=== PATIENT | male | born 1950 | race Caucasian/White ===

== ENCOUNTER 2019-02-01 11:40 | Inpatient (IN) | payer MEDICARE ==
--- NOTE | 2019-02-01 12:03 | ED ---
General Adult HPI - General Chief complaint: Shortness of Breath Stated complaint: SOB Time Seen by Provider: 02/01/19 11:40 Source: patient, RN notes reviewed Mode of arrival: ambulatory Limitations: no limitations - History of Present Illness Initial comments: This is a 68-year-old male who presents emergency Department being short of breath for the last few weeks. Patient states he thinks this began probably 6 months ago. Patient states lately though it is getting much worse. Patient states he short of breath sometimes just going to take a shower. Patient states tonight he woke up in the middle night in a panic because he was so short of br eath. Patient denies any chest pain patient denies any arm pain patient denies any neck pain. Patient states that he has had a bypass and has had stent placement in his heart. Patient states he has never had chest pain when he's had his issues with his heart in the past has always been arm pain. Patient denies any chest or arm pain today. Patient denies any recent fever chills or cough. Patient denies any leg swelling or calf tenderness. Patient states he notices himself sitting and doing things he normally would stand walk around and do. Patient's monitored home to set his heart rate was in the low 30s. - Related Data Home Medications Medication Instructions Recorded Confirmed Ammonium Lactate Cream [Lac-Hydrin 1 applic TOPICAL HS PRN 02/01/19 02/01/19 12% Cream] Aspirin [Emmet Aspirin EC] 81 mg PO DAILY 02/01/19 02/01/19 Beclomethasone Dipropionate [Qvar 2 puff INHALATION RT-DAILY 02/01/19 02/01/19 80 mcg] Carvedilol [Coreg] 25 mg PO BID 02/01/19 02/01/19 Famotidine [Pepcid] 20 mg PO DAILY PRN 02/01/19 02/01/19 Latanoprost/Pf [Latanoprost 0.005% 1 drop BOTH EYES HS 02/01/19 02/01/19 Eye Drop] Losartan [Cozaar] 50 mg PO DAILY 02/01/19 02/01/19 Naproxen Sodium [Aleve] 220 mg PO DAILY 02/01/19 02/01/19 Repaglinide [Prandin] 0.5 mg PO AC-SUPPER 02/01/19 02/01/19 Rosuvastatin [Crestor] 10 mg PO DAILY 02/01/19 02/01/19 metFORMIN HCL 1,000 mg PO BID 02/01/19 02/01/19 Allergies Allergy/AdvReac Type Severity Reaction Status Date / Time No Known Allergies Allergy Verified 02/01/19 12:23 Review of Systems ROS Statement: Those systems with pertinent positive or pertinent negative responses have been documented in the HPI. ROS Other: All systems not noted in ROS Statement are negative. Past Medical History Past Medical History: Coronary Artery Disease (CAD), Diabetes Mellitus, Hyperlipidemia, Hypertension History of Any Multi-Drug Resistant Organisms: None Reported Past Surgical History: Coronary Bypass/CABG, Heart Catheterization With Stent Past Psychological History: No Psychological Hx Reported Smoking Status: Former smoker Past Alcohol Use History: None Reported Past Drug Use History: None Reported General Exam - General Exam Comments Initial Comments: GENERAL: Patient is well-developed and well-nourished. Patient is nontoxic and well- hydrated and is in mild distress. ENT: Neck is soft and supple. No significant lymphadenopathy is noted. Oropharynx is clear. Moist mucous membranes. Neck has full range of motion without eliciting any pain. EYES: The sclera were anicteric and conjunctiva were pink and moist. Extraocular movements were intact and pupils were equal round and reactive to light. Eyelids were unremarkable. PULMONARY: Unlabored respirations. Good breath sounds bilaterally. No audible rales r honchi or wheezing was noted. CARDIOVASCULAR: There is a regular rate and rhythm without any murmurs gallops or rubs. ABDOMEN: Soft and nontender with normal bowel sounds. No palpable organomegaly was noted. There is no palpable pulsatile mass. SKIN: Skin is clear with no lesions or rashes and otherwise unremarkable. NEUROLOGIC: Patient is alert and oriented x3. Cranial nerves II through XII are grossly intact. Motor and sensory are also intact. Normal speech, volume and content. Symmetrical smile. MUSCULOSKELETAL: Normal extremities with adequate strength and full range of motion. No edema in the legs bilaterally. LYMPHATICS: No significant lymphadenopathy is noted PSYCHIATRIC: Normal psychiatric evaluation. Limitations: no limitations Course Vital Signs 02/01/19 02/01/19 11:41 12:47 Temperature 97.7 F Pulse Rate 32 L 94 Respiratory 18 14 Rate Blood Pressure 152/51 139/82 O2 Sat by Pulse 99 97 Oximetry Medical Decision Making - Medical Decision Making EKG shows a sinus rhythm with multiple PVCs and bigeminy pattern often. Patient's rate was 94 bpm AR interval is 158 QRSs 102 QT interval 350 QTC is 437. We have no old EKG to compare to. There is no obvious ST segment elevation or depression. CT of the chest showed no acute PE. - Lab Data Result diagrams: 02/01/19 12:05 02/01/19 12:05 Lab Results 02/01/19 02/01/19 02/01/19 Range/Units 12:05 12:05 12:05 WBC 5.5 (3.8-10.6) k/uL RBC 4.48 (4.30-5.90) m/uL Hgb 13.1 (13.0-17.5) gm/dL Hct 39.5 (39.0-53.0) % MCV 88.0 (80.0-100.0) fL MCH 29.2 (25.0-35.0) pg MCHC 33.2 (31.0-37.0) g/dL RDW 14.3 (11.5-15.5) % Plt Count 200 (150-450) k/uL Neutrophils % 55 % Lymphocytes % 28 % Monocytes % 9 % Eosinophils % 5 % Basophils % 0 % Neutrophils # 3.0 (1.3-7.7) k/uL Lymphocytes # 1.5 (1.0-4.8) k/uL Monocytes # 0.5 (0-1.0) k/uL Eosinophils # 0.3 (0-0.7) k/uL Basophils # 0.0 (0-0.2) k/uL PT (9.0-12.0) sec INR (<1.2) APTT (22.0-30.0) sec D-Dimer (<0.60) mg/L FEU Sodium 142 (137-145) mmol/L Potassium 5.4 H (3.5-5.1) mmol/L Chloride 111 H (98-107) mmol/L Carbon Dioxide 21 L (22-30) mmol/L Anion Gap 10 mmol/L BUN 28 H (9-20) mg/dL Creatinine 1.20 (0.66-1.25) mg/dL Est GFR (CKD-EPI)AfAm 72 (>60 ml/min/1.73 sqM) Est GFR (CKD-EPI)NonAf 62 (>60 ml/min/1.73 sqM) Glucose 117 H (74-99) mg/dL Calcium 9.5 (8.4-10.2) mg/dL Magnesium 1.4 L (1.6-2.3) mg/dL Total Bilirubin 0.6 (0.2-1.3) mg/dL AST 19 (17-59) U/L ALT 35 (21-72) U/L Alkaline Phosphatase 54 (38-126) U/L Troponin I (0.000-0.034) ng/mL NT-Pro-B Natriuret Pep 405 pg/mL Total Protein 6.8 (6.3-8.2) g/dL Albumin 4.5 (3.5-5.0) g/dL 02/01/19 02/01/19 02/01/19 Range/Units 12:05 12:05 12:05 WBC (3.8-10.6) k/uL RBC (4.30-5.90) m/uL Hgb (13.0-17.5) gm/dL Hct (39.0-53.0) % MCV (80.0-100.0) fL MCH (25.0-35.0) pg MCHC (31.0-37.0) g/dL RDW (11.5-15.5) % Plt Count (150-450) k/uL Neutrophils % % Lymphocytes % % Monocytes % % Eosinophils % % Basophils % % Neutrophils # (1.3-7.7) k/uL Lymphocytes # (1.0-4.8) k/uL Monocytes # (0-1.0) k/uL Eosinophils # (0-0.7) k/uL Basophils # (0-0.2) k/uL PT 10.6 (9.0-12.0) sec INR 1.0 (<1.2) APTT 24.5 (22.0-30.0) sec D-Dimer 0.77 H (<0.60) mg/L FEU Sodium (137-145) mmol/L Potassium (3.5-5.1) mmol/L Chloride (98-107) mmol/L Carbon Dioxide (22-30) mmol/L Anion Gap mmol/L BUN (9-20) mg/dL Creatinine (0.66-1.25) mg/dL Est GFR (CKD-EPI)AfAm (>60 ml/min/1.73 sqM) Est GFR (CKD-EPI)NonAf (>60 ml/min/1.73 sqM) Glucose (74-99) mg/dL Calcium (8.4-10.2) mg/dL Magnesium (1.6-2.3) mg/dL Total Bilirubin (0.2-1.3) mg/dL AST (17-59) U/L ALT (21-72) U/L Alkaline Phosphatase (38-126) U/L Troponin I <0.012 (0.000-0.034) ng/mL NT-Pro-B Natriuret Pep pg/mL Total Protein (6.3-8.2) g/dL Albumin (3.5-5.0) g/dL Disposition Clinical Impression: Dyspnea, Bigeminy, Hypomagnesemia Disposition: ADMITTED IP TO THIS HOSP Referrals: Obi Carrera MD [Primary Care Provider] - 1-2 days Time of Disposition: 15:02
[2019-02-01 12:20] LABS: Basophils % (A) 0 %; Eosinophils # (A) 0.3 k/uL (0-0.7); Eosinophils % (A) 5 %; HCT 39.5 % (39.0-53.0); HGB 13.1 gm/dL (13.0-17.5); Lymphocytes # (A) 1.5 k/uL (1.0-4.8); Lymphocytes % (A) 28 %; MCH 29.2 pg (25.0-35.0); MCHC 33.2 g/dL (31.0-37.0); Mean Platelet Volume 6.9; Monocytes # (A) 0.5 k/uL (0-1.0); Monocytes % (A) 9 %; Neutrophils % (A) 55 %; Platelet Count 200 k/uL (150-450); RBC 4.48 m/uL (4.30-5.90); RDW 14.3 % (11.5-15.5); WBC 5.5 k/uL (3.8-10.6)
[2019-02-01 12:27] LABS: Partial Thromboplastin Time 24.5 sec (22.0-30.0); Prothrombin Time 10.6 sec (9.0-12.0)
[2019-02-01 12:31] LABS: Albumin 4.5 g/dL (3.5-5.0); Calcium 9.5 mg/dL (8.4-10.2); Magnesium 1.4 mg/dL (1.6-2.3); Potassium 5.4 mmol/L (3.5-5.1); Total Bilirubin 0.6 mg/dL (0.2-1.3); Total Protein 6.8 g/dL (6.3-8.2)
--- NOTE | 2019-02-01 12:37 | XR ---
EXAMINATION TYPE: XR chest 2V DATE OF EXAM: 02/01/2019 COMPARISON: NONE TECHNIQUE: PA and lateral views submitted. HISTORY: Irregular heart rate FINDINGS: The lungs are clear and there is no pneumothorax, pleural effusion, or focal pneumonia. Disrupted s ternotomy wires seen. Additional sternotomy wires are identified. No overt failure. The heart is mild ly enlarged. Arthropathy of the shoulders. Hypertrophic degenerative change of the spine. IMPRESSION: 1. No acute process.
--- NOTE | 2019-02-01 14:40 | CT ---
EXAMINATION TYPE: CT chest angio for PE DATE OF EXAM: 02/01/2019 COMPARISON: NONE HISTORY: Chest pain CT DLP: 519.1 mGycm. Automated Exposure Control for Dose Reduction was Utilized. CONTRAST: CTA scan of the thorax is performed with IV Contrast, patient injected with 100 mL of Isovue 370, pul monary embolism protocol. MIP Images are created on CT scanner and reviewed. FINDINGS: LUNGS: Patchy geographic areas of groundglass opacity typically related to mild fluid overload and ov erall congestive heart failure is favored given the enlarged heart. The lungs are grossly clear, ther e is no concerning parenchymal mass or nodule identified. There is no pleural effusion or pneumotho rax seen. The tracheobronchial tree is patent. MEDIASTINUM: There is satisfactory enhancement of the pulmonary artery and its branches, there is no CT evidence for pulmonary embolism. There are no greater than 1 cm hilar or mediastinal lymph nodes. Heart is mildly enlarged. No pericardial effusion. Post CABG changes the chest are noted. OTHER: Minimal retroareolar bilateral symmetric gynecomastia is present. Cholelithiasis is noted with calculi near the gallbladder neck. Too small to accurately characterize left renal exophytic lesion is present. There are median sternotomy wires. Subacute appearing fracture of the posterior lateral m argin of ribs 6 through 8 are seen. Bridging anterior osteophytes suggest diffuse idiopathic skeletal hyperostosis. IMPRESSION: 1. No evidence of pulmonary embolus. 2. Scattered geographic ground glass opacities have a broad differential however primary differential consideration is for cardiogenic fluid overload. Atypical pneumonia, hypersensitivity pneumonitis, o r inflammatory etiology would be considered less likely. 3. Cholelithiasis with calculi near the gallbladder neck.
[2019-02-01] MEDS ORDERED: SODIUM CHLORIDE 0.9% 1,000 ML IV ONE (15:17)
[2019-02-01] MEDS ORDERED: MAGNESIUM SULFATE-D5W PMX 1 GM in DEXTROSE/WATER 1 100ML.BAG IVPB ONE (15:26)
[2019-02-01 16:52] LABS: Glucose,Whole Blood 100 mg/dL (75-99)
[2019-02-01] MEDS ORDERED: AMMONIUM LACTATE 12% CREAM 140 GM TUBE TOPICAL PRN (18:55)
[2019-02-01] MEDS ORDERED: FAMOTIDINE 20 MG TAB PO PRN (18:55)
[2019-02-01] MEDS ORDERED: REPAGLINIDE 1 MG TAB PO SCH (19:00)
[2019-02-01] MEDS: CARVEDILOL 12.5 MG TAB PO SCH (20:21)
[2019-02-01] MEDS: MAGNESIUM OXIDE 400 MG TAB PO SCH ×2 (20:22→20:30)
[2019-02-01] MEDS: metFORMIN 500 MG TAB PO SCH (20:22)
[2019-02-01 20:55] LABS: Glucose,Whole Blood 112 mg/dL (75-99)
[2019-02-01] MEDS ORDERED: LATANOPROST 0.005% OPHTH DROPS 2.5 ML BTL BOTH EYES SCH (21:00)
[2019-02-01] MEDS: INSULIN ASPART (NovoLOG) 100 UNIT/ML VIAL SQ SCH (21:28)
--- NOTE | 2019-02-01 23:35 | HP ---
HISTORY AND PHYSICAL DATE OF ADMISSION: 02/01/2019 DATE OF SERVICE: 02/01/2019 PRESENTING COMPLAINT: Short of breath. HISTORY OF PRESENTING COMPLAINT: This is a 68-year-old patient of Dr. Obi Carrera. Chronic stable medical conditions include coronary artery disease, diabetes, hypertension, hyperlipidemia. The patient 8 days ago noticed that he was having trouble lying down sleeping. In fact had to lean forward and sleep. He has been noticing that he gets more easily short winded. Decreased energy. No edema. Occasional cough. No palpitations. No perspiration. 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 The patient was found to have frequent bigeminy and admitted for the same. Cardiology was consulted. REVIEW OF SYSTEMS: CONSTITUTIONAL: Tired. HEENT None. RESPIRATORY as above. CARDIOVASCULAR as above. GASTROINTESTINAL none. GENITOURINARY: None. MUSCULOSKELETAL: None. DERMATOLOGICAL, HEMATOLOGICAL: LYMPHATIC: none. PSYCHIATRY none., NEUROLOGICAL none. PAST MEDICAL HISTORY: Atrial fibrillation, coronary artery disease, diabetes mellitus type 2, hypertension, hyperlipidemia. PAST SURGICAL HISTORY: Back surgery, coronary bypass, cardiac cath with stent, eye surgery. SOCIAL HISTORY: Did smoke in the past. . The patient taught elementary. . FAMILY HISTORY: Coronary artery disease, stroke, diabetes. HOME MEDICATIONS: 1. Metformin 1000 mg p.o. b.i.d. 2. Crestor 10 mg p.o. daily. 3. Prandin 0.5 mg before supper. 4. Aleve 220 mg p.o. daily. 5. Cozaar 50 mg p.o. daily. 6. Latanoprost 0.005% 1 drop both eyes q.h.s. 7. Pepcid 20 mg p.o. daily p.r.n. 8. Coreg 25 mg p.o. b.i.d. 9. Qvar 80 mcg 2 puffs daily. 10.Aspirin 81 mg a day. 11.Lac-Hydrin 12% 1 application topical q.h.s. p.r.n. ALLERGIES: None. PHYSICAL EXAMINATION: VITAL SIGNS: Temperature 98.9, pulse 70, respiratory 18, blood pressure 162/65. Pulse ox 96% on room air. GENERAL APPEARANCE: Well built, BMI 31.2, sitting up awake. EYES: Pupils equal. Conjunctivae normal. HEENT: External appearance of nose and ears normal. Oral cavity normal. NECK: JVD unable to assess. Mass not palpable. RESPIRATORY: Effort increased. LUNGS: Diminished breath sounds cardiovascular. CARDIOVASCULAR: Heart sounds irregular. No edema. ABDOMEN: Soft, nontender. Liver and spleen not palpable. LYMPHATIC: No lymph nodes palpable in the neck or axilla. PSYCHIATRY: Alert and oriented x3. Mood and affect normal. NEUROLOGICAL: Pupils equal. Cranial nerves grossly intact. Power and sensation grossly intact. INVESTIGATIONS: White count 5.5, hemoglobin 13.1 potassium 5.4, BUN 20, creatinine 1.20, troponin times two negative. EKG frequent bigeminy. Chest CTA: No PE, gallstones. Chest x-ray film personally reviewed by me shows cardiomegaly. ASSESSMENT: 1. Frequent bigeminy, query symptomatic. 2. Symptoms of orthopnea, some cardiomegaly. The patient may be having high end- diastolic pressure. 3. Coronary artery disease with prior history of coronary artery bypass. 4. Diabetes mellitus type 2 on oral hypoglycemics. 5. Essential hypertension. 6. Hyperlipidemia. PLAN: Home medications are reviewed. We will DC the saline. Will give patient 1 dose of IV Lasix in the morning. Get a 2-D echocardiogram. Cardiology has been consulted. Care was discussed with the patient. The patient also on telemetry. MMODL / IJN: [id number] /
[2019-02-02 06:14] LABS: Glucose,Whole Blood 128 mg/dL (75-99)
[2019-02-02] MEDS: INSULIN ASPART (NovoLOG) 100 UNIT/ML VIAL SQ SCH ×2 (06:32→11:47)
[2019-02-02 07:15] LABS: Anion Gap 5 mmol/L; Blood Urea Nitrogen 22 mg/dL (9-20); Calcium 9.4 mg/dL (8.4-10.2); Carbon Dioxide 25 mmol/L (22-30); Chloride 110 mmol/L (98-107); Glucose 117 mg/dL (74-99); Magnesium 1.6 mg/dL (1.6-2.3); Potassium 5.3 mmol/L (3.5-5.1); Sodium 140 mmol/L (137-145)
[2019-02-02] MEDS: CARVEDILOL 12.5 MG TAB PO SCH (07:28)
[2019-02-02] MEDS ORDERED: FLUTICASONE 110 MCG INHALER INHALATION SCH (08:00)
[2019-02-02] MEDS ORDERED: LOSARTAN 50 MG TAB PO SCH (09:00)
[2019-02-02] MEDS ORDERED: FUROSEMIDE 10 MG/ML 4 ML VIAL IV SCH (09:00)
[2019-02-02] MEDS ORDERED: ASPIRIN 81 MG PO SCH (09:00)
[2019-02-02] MEDS ORDERED: ATORVASTATIN 20 MG TAB PO SCH (09:00)
--- NOTE | 2019-02-02 09:04 | P.CRDCN ---
History of Present Illness Consult date: 02/02/19 Requesting physician: Owen Burrell Consult reason: shortness of breath Chief complaint: Shortness of breath History of present illness: This is a pleasant 68-year-old gentleman who follows regularly with Dr. Aguillon in the office, he actually had an appointment in the office with him today. He has a known history of coronary artery disease with prior PTCA in 1998, subsequent to that he had bypass surgery in 2000, and most recently underwent a stent placement in 2013. He does have history of hypertension, diabetes, hyperlipidemia. He is a nonsmoker. He presents to the hospital on this occasion with symptoms of difficulty in catching his breath. He states that when he is in a reclined position sleeping, that he wakes up and is unable to breathe. He remains completely forward and shortly thereafter is able to breathe. He does state that when he is lying on the couch watching TV in the evening that he doesn't have these symptoms, it seems to be more so when he is lying in bed or in his recliner sleeping. 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 Blood pressure 140/60 with a heart rate in the 50s to 70s, he is afebrile, 97% on room air. White blood cell count 5.5, hemoglobin 13.1, platelet count 200. His d-dimer 0.77. Sodium 140, potassium 5.3, BUN 22 and creatinine 0.9. A mesial on admission 1.4, 1.6 this morning. Troponins negative 3. BNP level 405. Chest x-ray does not reveal any acute process. CTA of the chest did not reveal any evidence for pulmonary embolism, it did reveal scattered geographic ground glass obesity which have a broad differential however primary differential consideration is for cardiogenic fluid overload. Atypical pneumonia, pneumonitis, or inflammatory etiology. EKG shows a normal sinus rhythm with frequent bigeminal PVCs. Monitor tracing also shows bigeminal PVCs. At the time of my examination this morning patient is comfortable, he denies any palpitations, no difficulty in breathing, no dizziness or lightheadedness. Past Medical History Past Medical History: Atrial Fibrillation, Coronary Artery Disease (CAD), Diabetes Mellitus, Hyperlipidemia, Hypertension History of Any Multi-Drug Resistant Organisms: None Reported Past Surgical History: Back Surgery, Coronary Bypass/CABG, Heart Catheterization, Heart Catheterization With Stent, Orthopedic Surgery Additional Past Surgical History / Comment(s): EYE SX. Past Anesthesia/Blood Transfusion Reactions: No Reported Reaction Date of Last Stent Placement:: 2013 Past Psychological History: No Psychological Hx Reported Smoking Status: Former smoker Past Alcohol Use History: None Reported Past Drug Use History: None Reported - Past Family History Father Family Medical History: Coronary Artery Disease (CAD), CVA/TIA, Diabetes Mellitus Mother History Unknown: Yes Brother(s) Family Medical History: Coronary Artery Disease (CAD), Diabetes Mellitus Medications and Allergies Home Medications Medication Instructions Recorded Confirmed Type Ammonium Lactate Cream [Lac-Hydrin 1 applic TOPICAL HS PRN 02/01/19 02/01/19 History 12% Cream] Aspirin [Herkimer Aspirin EC] 81 mg PO DAILY 02/01/19 02/01/19 History Beclomethasone Dipropionate [Qvar 2 puff INHALATION RT-DAILY 02/01/19 02/01/19 History 80 mcg] Carvedilol [Coreg] 25 mg PO BID 02/01/19 02/01/19 History Famotidine [Pepcid] 20 mg PO DAILY PRN 02/01/19 02/01/19 History Latanoprost/Pf [Latanoprost 0.005% 1 drop BOTH EYES HS 02/01/19 02/01/19 History Eye Drop] Losartan [Cozaar] 50 mg PO DAILY 02/01/19 02/01/19 History Naproxen Sodium [Aleve] 220 mg PO DAILY 02/01/19 02/01/19 History Repaglinide [Prandin] 0.5 mg PO AC-SUPPER 02/01/19 02/01/19 History Rosuvastatin [Crestor] 10 mg PO DAILY 02/01/19 02/01/19 History metFORMIN HCL 1,000 mg PO BID 02/01/19 02/01/19 History Allergies Allergy/AdvReac Type Severity Reaction Status Date / Time No Known Allergies Allergy Verified 02/01/19 12:23 Physical Exam Vitals: Vital Signs Temp Pulse Pulse Resp BP BP Pulse Ox 02/02/19 04:00 97.6 F 57 L 15 141/63 97 04/30/19 00:00 77 16 112/59 95 02/01/19 20:00 98.0 F 56 L 17 123/70 98 02/01/19 16:50 98.9 F 78 18 163/65 96 02/01/19 16:20 92 12 142/80 99 02/01/19 12:47 94 14 139/82 97 02/01/19 11:41 97.7 F 32 L 18 152/51 99 Intake and Output 02/01/19 02/02/19 02/02/19 22:59 06:59 14:59 Intake Total 480 620 840 Balance 480 620 840 Intake: IV 20 Invasive Line 1 20 Intake, IV Titration 600 600 Amount Sodium Chloride 0.9% 1, 600 600 000 ml @ 75 mls/hr IV . [id number] ONE Rx#:[id number] Oral 480 240 Other: Voiding Method Toilet Toilet # Voids 2 Weight 103.8 kg PHYSICAL EXAMINATION: GENERAL: 68-year-old gentleman in no acute distress at the time of my examination HEENT: Head is atraumatic, normocephalic. Pupils equal, round. Sclera anicteric. Conjunctiva are clear. Mucous membranes of the mouth are moist. Neck is supple. There is no elevated jugular venous pressure. No carotid bruit is heard. HEART EXAMINATION: Heart S1, S2 normal. No murmur or gallop heard. CHEST EXAMINATION: Lungs are clear to auscultation and precussion. No chest wall tenderness is noted on palpation or with deep breathing. ABDOMEN: Soft, nontender. Bowel sounds are heard. No organomegaly noted. EXTREMITIES: 2+ peripheral pulses with no evidence of peripheral edema and no calf tenderness noted. NEUROLOGIC patient is awake, alert and oriented 3 . . Results 02/01/19 12:05 02/02/19 06:38 Cardiac Enzymes 02/01/19 02/01/19 02/01/19 Range/Units 12:05 12:05 21:00 AST 19 (17-59) U/L Troponin I <0.012 <0.012 (0.000-0.034) ng/mL 02/02/19 Range/Units 00:06 AST (17-59) U/L Troponin I <0.012 (0.000-0.034) ng/mL Coagulation 02/01/19 Range/Units 12:05 PT 10.6 (9.0-12.0) sec APTT 24.5 (22.0-30.0) sec CBC 02/01/19 Range/Units 12:05 WBC 5.5 (3.8-10.6) k/uL RBC 4.48 (4.30-5.90) m/uL Hgb 13.1 (13.0-17.5) gm/dL Hct 39.5 (39.0-53.0) % Plt Count 200 (150-450) k/uL Comprehensive Metabolic Panel 02/01/19 02/02/19 Range/Units 12:05 06:38 Sodium 142 140 (137-145) mmol/L Potassium 5.4 H 5.3 H (3.5-5.1) mmol/L Chloride 111 H 110 H (98-107) mmol/L Carbon Dioxide 21 L 25 (22-30) mmol/L BUN 28 H 22 H (9-20) mg/dL Creatinine 1.20 0.98 (0.66-1.25) mg/dL Glucose 117 H 117 H (74-99) mg/dL Calcium 9.5 9.4 (8.4-10.2) mg/dL AST 19 (17-59) U/L ALT 35 (21-72) U/L Alkaline Phosphatase 54 (38-126) U/L Total Protein 6.8 (6.3-8.2) g/dL Albumin 4.5 (3.5-5.0) g/dL Current Medications Generic Name Dose Route Start Last Admin Trade Name Freq PRN Reason Stop Dose Admin Aspirin 81 mg 02/02/19 09:00 Aspirin PO DAILY [facility] Atorvastatin Calcium 20 mg 02/02/19 09:00 Lipitor PO DAILY [facility] Carvedilol 25 mg 02/01/19 19:15 02/02/19 07:28 Coreg PO 25 mg BID-W/MEALS ZOË Administration Famotidine 20 mg 02/01/19 18:55 Pepcid PO DAILY PRN Heartburn Fluticasone Propionate 1 puff 02/02/19 08:00 02/02/19 07:33 Flovent 110 Mcg Inhaler INHALATION 1 puff RT-BID ZOË Administration Furosemide 40 mg 02/02/19 09:00 Lasix IV 02/02/19 09:01 DAILY [facility] Magnesium Sulfate/Dextrose 1 100 mls @ 100 mls/hr 02/02/19 09:00 gm/ IV Solution IVPB 02/02/19 10:59 Q1H [facility] Insulin Aspart 0 unit 02/01/19 21:00 02/02/19 06:32 Novolog SQ Not Given ACHS [facility] Protocol Lactic Acid 1 applic 02/01/19 18:55 Ammonium Lactate TOPICAL HS PRN feet Latanoprost 1 drops 02/01/19 21:00 02/01/19 20:19 Xalatan 0.005% BOTH EYES 1 drops HS ZOË Administration Losartan Potassium 50 mg 02/02/19 09:00 Cozaar PO DAILY [facility] Magnesium Oxide 400 mg 02/01/19 19:00 02/01/19 20:30 Mag-Ox PO Not Given TID [facility] Metformin HCl 1,000 mg 02/01/19 21:00 02/01/19 20:22 Glucophage PO 1,000 mg BID ZOË Administration Naproxen 250 mg 02/02/19 12:00 Naprosyn PO DAILY@1200 [facility] Repaglinide 0.5 mg 02/01/19 19:00 02/01/19 20:24 Prandin PO 0.5 mg AC-SUPPER ZOË Administration Intake and Output 02/01/19 02/02/19 02/02/19 22:59 06:59 14:59 Intake Total 480 620 840 Balance 480 620 840 Intake: IV 20 Invasive Line 1 20 Intake, IV Titration 600 600 Amount Sodium Chloride 0.9% 1, 600 600 000 ml @ 75 mls/hr IV . [id number] ONE Rx#:[id number] Oral 480 240 Other: Voiding Method Toilet Toilet # Voids 2 Weight 103.8 kg 02/01/19 12:05 02/02/19 06:38 EKG Interpretations (text) EKG shows a normal sinus rhythm with frequent PVCs, bigeminal Assessment and Plan Plan: Assessment and plan #1 symptoms of shortness of breath and inability to catch his breath, mostly with lying flat and sleeping #2 bigeminal PVCs #3 known history of coronary artery disease with prior PTCA in 1998, subsequent bypass in 2000 and most recent stenting in 2013 #4 hypertension #5 diabetes #6 hyperlipidemia #7 hypomagnesemia Plan We will obtain an echocardiogram with Doppler study. Replace magnesium. We will also obtain record of recent monitor tracings. Patient has also been advised to undergo sleep study as an outpatient for possible sleep apnea which could be contributing to symptoms. Further recommendations to follow. DNP note has been reviewed, I agree with a documented findings and plan of care. Patient was seen and examined.
[2019-02-02] MEDS: MAGNESIUM OXIDE 400 MG TAB PO SCH (09:33)
[2019-02-02] MEDS: metFORMIN 500 MG TAB PO SCH (09:33)
[2019-02-02] MEDS: MAGNESIUM SULFATE-D5W PMX 1 GM in DEXTROSE/WATER 1 100ML.BAG IVPB SCH ×2 (09:34→11:45)
[2019-02-02 11:44] LABS: Glucose,Whole Blood 112 mg/dL (75-99)
[2019-02-02] MEDS ORDERED: NAPROXEN 250 MG TAB PO SCH (12:00)
[2019-02-02 13:14] LABS: Hemoglobin A1C 6.2 % (4.0-6.0)
[2019-02-02 13:25] VITALS: RESP 18
[2019-02-02 13:27] VITALS: BP 112/60; PULSE 85; TEMP 97.4
--- NOTE | 2019-02-03 08:54 | DS ---
DISCHARGE SUMMARY DATE OF ADMISSION: 02/01/2019 DATE OF DISCHARGE: 02/02/2019 FINAL DIAGNOSES: 1. Symptomatic bigeminy. 2. Coronary artery disease with prior history of coronary artery bypass. 3. Diabetes mellitus type 2 on oral hypoglycemic. 4. Essential hypertension. 5. Hyperlipidemia. 6. Gallstones, asymptomatic. CONSULTATION: Dr. Aguillon from Cardiology. HOSPITAL COURSE: The patient has known coronary artery disease, presents with some orthopnea, shortness of breath. Patient is found to have frequent bigeminies, seen by Cardiology. Patient will follow with them in the outpatient. No further change in medications. Patient is otherwise doing well. PHYSICAL EXAMINATION: Temperature 97.4, pulse 85, respiratory rate 18, blood pressure 102/60, pulse ox 96% on room air. LUNGS: Clear. CARDIOVASCULAR: First and second sounds are normal. INVESTIGATIONS: Potassium 5.3, BUN 22, creatinine 0.98. Chest CTA, no evidence of PE. Follow up with Dr. Aguillon on 02/09/2019, follow up with Obi Carrera in 3 days. The patient also to follow up with Dr. Obi Carrera for an outpatient sleep study referral. MMODL / IJN: [id number] /
== END 2019-02-02 15:44 | disposition home or self-care (01) | DRG 316 ==
LOC: EC 11:40 → 3SCARD 15:17
PROVIDERS: ADMIT Hospitalist; ATTEND Hospitalist
DX: R00.8 Other abnormalities of heart beat (principal); E11.9 Type 2 diabetes mellitus without complications; E78.5 Hyperlipidemia, unspecified; E83.42 Hypomagnesemia; I10 Essential (primary) hypertension; I25.10 Atherosclerotic heart disease of native coronary artery without angina pectoris; I48.91 Unspecified atrial fibrillation; I49.3 Ventricular premature depolarization; Z79.82 Long term (current) use of aspirin; Z79.84 Long term (current) use of oral hypoglycemic drugs; Z79.899 Other long term (current) drug therapy; Z82.3 Family history of stroke; Z82.49 Family history of ischemic heart disease and other diseases of the circulatory system; Z83.3 Family history of diabetes mellitus; Z87.891 Personal history of nicotine dependence; Z95.1 Presence of aortocoronary bypass graft; Z95.5 Presence of coronary angioplasty implant and graft
CPT/HCPCS: 36415; 71046; 71275; 80048; 80053; 83036; 83735; 83880; 84484; 85025; 85379; 85610; 85730; 93005; 93306; 94640; 99285

== ENCOUNTER → 2019-02-24 | Outpatient (CLI) | payer MEDICARE ==
--- NOTE | 2019-02-24 12:52 | CT ---
EXAMINATION TYPE: CT chest wo con DATE OF EXAM: 02/24/2019 COMPARISON: 02/01/2019 HISTORY: Dyspnea. CT DLP: 648 mGycm. Automated Exposure Control for Dose Reduction was Utilized. TECHNIQUE: CT scan of the thorax is performed without IV contrast. FINDINGS: LUNGS: The lungs are grossly clear, there is no concerning parenchymal mass or nodule identified. T here is no pleural effusion or pneumothorax seen. The tracheobronchial tree is patent. MEDIASTINUM: Lack of IV contrast is noted to limit evaluation for mediastinal and especially hilar ad enopathy. There are no definitive greater than 1 cm hilar or mediastinal lymph nodes. Heart is mildly enlarged. No pericardial effusion is seen. Post CABG changes are noted. OTHER: There are small calculi within the gallbladder neck and 1 calculus near the distal gallbladder neck at the cystic duct junction although there is no dilation of the common bile duct at this time. Solitary hepatic granuloma is seen on the last image (69) of series 3. Median sternotomy wires are a gain noted. Bridging anterior osteophytes of the thoracic spine suggesting diffuse idiopathic skeleta l hyperostosis. IMPRESSION: 1. The previously seen scattered geographic groundglass opacities that may have been on the basis of fluid overload, hypersensitivity pneumonitis, inflammatory process or atypical pneumonitis have resol [facility] in the interim. 2. Multiple small calculi appear within the gallbladder neck with distal stone appearing newly impact ed however there is no dilation of the common bile duct seen.
== END | disposition home or self-care (01) ==
LOC: RADCTMAIN 12:00
PROVIDERS: ATTEND Internal Medicine Critical Care Medicine
DX: R91.8 Other nonspecific abnormal finding of lung field (principal)
CPT/HCPCS: 71250

== ENCOUNTER → 2021-05-25 | Outpatient (CLI) | payer MEDICARE ==
--- NOTE | 2021-05-25 10:43 | XR ---
EXAMINATION TYPE: XR chest 2V DATE OF EXAM: 05/25/2021 COMPARISON: 02/01/2019 TECHNIQUE: PA and lateral views submitted. HISTORY: Epicardial lead FINDINGS: The lungs are clear and there is no pneumothorax, pleural effusion, or focal pneumonia. Surgical cl ips sternotomy wires are seen overlying the mediastinum. Arthropathy of the shoulders. Heart mildly p rominent no overt failure. Number of lesions are seen overlying the chest and epigastrium. No diagnos tic evidence of epicardial lead. IMPRESSION: 1. No acute process.
== END | disposition home or self-care (01) ==
LOC: RADXRMAIN 10:09
PROVIDERS: ATTEND Orthopaedic Surgery
DX: Z48.812 Encounter for surgical aftercare following surgery on the circulatory system (principal)
CPT/HCPCS: 71046